=== PATIENT | female | born 1990 | race Caucasian/White ===

== ENCOUNTER 2016-08-20 19:56 | Emergency (ER) | payer OTHER ==
[~2016-08-20] VITALS: Ht 165.1 cm; Wt 50.0 kg
[~2016-08-20 19:56] MED LIST: ASCO500T8 PO; FERR-83 PO; Hydrocodone/Acetaminophen PO; Ibuprofen PO; PREN1TAB78 PO
[2016-08-20 20:06] VITALS: BP 129/84; PULSE 122; RESP 20; O2SAT 98
[2016-08-20] MEDS ORDERED: Ondansetron 2 mg/mL 2 mL Inj ONE (21:51)
[2016-08-20] MEDS ORDERED: 0.9% Sodium Chloride 1,000 ML ONE (21:51)
[2016-08-20 21:55] LABS: BASOPHILS % (AUTO) 0.2 % (0-3); EOSINOPHILS % (AUTO) 0.4 % (0-5); MONOCYTES % (AUTO) 11.3 % (4-12); Mean Corpuscular Volume 82.2 fL (81-100); NEUTROPHILS % (AUTO) 67.3 % (40-74); Platelet Count 108 bil/L (150-400)
[2016-08-20 22:17] LABS: Magnesium 1.8 mg/dL (1.6-2.6)
--- NOTE | 2016-08-20 22:38 | ED.REPORT ---
HPI-General Illness Date of Service Aug 20, 2016 ED Provider: Nolan Joyce MD This patient is an otherwise healthy 26 year old female presenting to the ED complaining of intermittent cough that started 3 months ago. The cough worsened 4 days ago, and became productive. Pt. admits to headache, neck pain, low back pain, pelvic pain, fever, and "pressure with urination," but denies pain in tympanic membranes, vaginal bleeding, or vaginal discharge. Low back and pelvic pain started today. Fever also started today with a maximum temperature of 100.5 degrees. She states that no one else at home has been sick. She was seen at Urgent Care earlier and flu and urine tests were negative. Nursing Notes Stated Complaint: SORE BODY,PELVIS/LOWER BACK PAIN,FEVER,COUGH,DIZZY Chief Complaint: General Complaint Nursing Notes Reviewed: Yes Allergies: Coded Allergies: No Known Allergies (Unverified Allergy, 08/08/11) Scheduled Ascorbic Acid (Vitamin C) 500 Mg Tablet 250 MG PO BID Ferrous Sulfate (Ferrous Sulfate) 325 Mg Tablet 325 MG PO BID Vits W-Ca,Fe,FA(<1Mg) ( Formula) 1 Each Tablet 1 EACH PO DAILY Scheduled PRN ([Hydrocodone/Acetaminophen]) 1 TAB TABLET 1-2 TAB PO Q4H PRN PRN For Pain ([Ibuprofen]) 600 MG TABLET 600 MG PO Q6H PRN PRN For Mild Pain General Time Seen by MD: 21:59 Chief Complaint Cough Hx Obtained From: Patient Arrived By: Walk-in Sudden in Onset?: No Onset Occurred: 4 days ago Symptom Duration: Since onset Recent Healthcare: No recent doctor visit, No recent hospitalization Similar Sx Previous: No Past Medical History Past Medical History Notes: two children Past Medical History None reported Past Surgical History None reported Smoking History Unknown if Ever Smoker Social History Other Social History: Good social support Ambulatory Status Independent Review of Systems Full Review of Systems Constitutional: Reports: Fever Ears / Nose / Throat: Denies: Earache bilateral Respiratory: Reports: Non-productive cough (Started 3 months ago; intermittent) , Prod cough, yellow (Started 4 days ago) Female: Reports: Dysuria ("pressure"), Pelvic pain, Denies: Vaginal bleeding - abnl, Vaginal discharge Musculoskeletal: Reports: Lumbar pain, Neck pain Neurologic: Reports: Headache Complete sys rev & neg: except as marked. Physical Exam Vital Signs Vital Signs Date Time Temp Pulse Resp B/P Pulse Ox O2 Delivery O2 Flow Rate FiO2 08/21/16 00:54 84 16 115/76 97 Room Air 08/20/16 20:06 36.9 122 20 129/84 98 Room Air Initial VS: Reviewed Head / Eyes: Atraumatic, Normocephalic, PERRL Neck: Supple, Non-tender, Full range of motion Cardiovascular: Regular rate & rhythm, Heart sounds normal, Intact distal pulses Abdomen / GI: Soft, Non-tender, No guarding, No rebound, No distention Back: No CVA tenderness Extremities: Vascular intact, Neuro intact Skin: Warm, Dry, No cyanosis Neurologic: Alert, Oriented, Nonfocal Psychiatric: Mood/affect normal, Behavior normal, Normal thought content General/Constitutional: Awake, Alert ENT: Atraumatic, Airway patent, Mucous membranes moist, Pharynx NL Respiratory / Chest: Atraumatic, Breath sounds NL, Breath sounds = bilat, No respiratory distress Cardiovascular: Heart rate NL, Regular rhythm, Heart sounds NL, No murmurs Interpretation & Diagnostics Lab Results Interpretation Result Diagram: 08/20/16213908/20/[id number] Test 08/20/16 21:40 08/20/16 23:56 White Blood Count 5.2th/mm3 (3.8-10.1) Red Blood Count 5.23mil/mm3 (3.90-5.20) Hemoglobin 14.1g/dL (12.0-15.6) Hematocrit 43.0% (35.0-46.0) Mean Corpuscular Volume 82.2fL (81-100) Mean Corpuscular Hemoglobin 27.0pg (27.0-35.0) Mean Corpuscular Hemoglobin Concent 32.8% (32.0-37.0) Red Cell Distribution Width 14.2% (12.3-15.4) Platelet Count 108bil/L (150-400) Neutrophils (%) (Auto) 67.3% (40-74) Lymphocytes (%) (Auto) 20.8% (14-46) Monocytes (%) (Auto) 11.3% (4-12) Eosinophils (%) (Auto) 0.4% (0-5) Basophils (%) (Auto) 0.2% (0-3) Hold Purple Top Tube Received (Received) Hold Blue Top Tube Received (Received) Sodium Level 138mEq/L (134-144) Potassium Level 3.9mEq/L (3.5-5.2) Chloride Level 99mEq/L (97-108) Carbon Dioxide Level 25mmol/L (18-29) Blood Urea Nitrogen 12mg/dL (6-20) Creatinine 0.72mg/dL (0.57-1.00) Estimat Glomerular Filtration Rate 143mL/min (>59) Glucose Level 112mg/dL (60-99) Calcium Level 9.1mg/dL (8.5-10.1) Magnesium Level 1.8mg/dL (1.6-2.6) Total Bilirubin 0.3mg/dL (0.0-1.2) Aspartate Amino Transf (AST/SGOT) 20U/L (0-50) Alanine Aminotransferase (ALT/SGPT) 12U/L (0-32) Alkaline Phosphatase 66U/L (25-150) Total Protein 7.9g/dL (6.4-8.4) Albumin 4.4g/dL (3.4-5.0) Lipase 25U/L (13-60) Hold Red Top Tube Received (Received) Hold [place] Top Tube Received (Received) Hold [place] Top Tube Received (Received) Hold Urine Received (Received) X-Ray Chest Interpretation Chest Xray Interpretation: Clear Interpretation / Wet Read by: Wet read ED physician Re-Eval/Medical Decision Med Decision/Clinical Course 26-year-old female presenting complaining of cough, congestion, headache, abdominal pain for several days. Patient appears quite well on exam. Abdomen is soft without any rebound or guarding. She has mild diffuse tenderness. Chest x-ray unremarkable. Labs unremarkable. Urine negative for infection. Abdominal pain resolved spontaneously. Likely viral etiology. Recommend home with supportive care and return precautions if any new or worsening abdominal pain fevers, shortness of breath, any other new or worsening symptoms. Source of Hx: Old records Time of Eval: 00:33 Patient Status: Condition improved Re-Evaluation/Progress Note: Ready for discharge. Pt. understands and agrees with plan. All questions have been addressed at this time. Counseled Regarding: Diagnosis, Lab results, Need for follow-up, When/why to return to ED Discharge & Departure Primary Impression: Viral syndrome Disposition: Home Discharge Condition All VS Reviewed: Yes Condition: Stable Additional Instructions: Thank you for entrusting your care with us today. You have a viral syndrome. Please follow up with your primary care provider in 1-2 days. Make sure to drink lots of fluids and electrolytes. Come back to the emergency department for shortness of breath, worsening abdominal pain, or new or concerning symptoms. Work note given. Referrals: TABITHA TOURE MD (PCP) Kay[place] Attestation Portions of this note were transcribed by Bianca Briones and Veronica Smith. I, Dr. Joyce personally performed the history, physical exam and medical decision-making; I reviewed and confirmed the accuracy of the information in the transcribed note. Signed by: Bianca Briones and Darwin Mercado, 2015 and [id number]. copies to: TABITHA TOURE MD, Ben M MD Aug 20, 2016 22:38 Key Smith [Veronica] Aug 20, 2016 22:46 BIANCA BRIONES Aug 21, 2016 02:36
[2016-08-21 00:54] VITALS: BP 115/76; PULSE 84; RESP 16; O2SAT 97
--- NOTE | 2016-08-21 09:59 | DRSVH ---
PROCEDURE: X-RAY CHEST ONE VIEW, PORTABLE ([id number]) INDICATIONS: cough TECHNIQUE: One view of the chest was acquired. COMPARISON: [facility], CR, CHEST 2VW, 10/20/2010, 13:09. FINDINGS: Surgical changes and devices: None. Lungs and pleura: No pleural effusions or pneumothorax. Lungs are clear. Mediastinum: Mediastinal contours appear normal. Heart size is normal. Bones and chest wall: No suspicious bony lesions. Overlying soft tissues appear unremarkable. IMPRESSION: Normal for age. No source of cough is found. Dictated by: Roberto Francis M.D. on 08/21/2016 at 9:57 Approved by: Roberto Francis M.D. on 08/21/2016 at 9:57
== END 2016-08-21 00:53 | disposition home or self-care (01) ==
LOC: SED 19:56
DX: B34.9 Viral infection, unspecified (principal); R05 Cough; R30.0 Dysuria
CPT/HCPCS: 36415; 71010; 80053; 81002; 81025; 83690; 83735; 85025; 87804; 96361; 96374; 96375; 99285; G0463; J2405; J7030